=== PATIENT | male | born 1955 | race Hispanic/Latino ===

== ENCOUNTER → 2024-06-29 | Outpatient (CLI) | payer OTHER ==
[~2024-06-29] MED LIST: HYDR25SU7 RC
--- NOTE | 2024-06-30 07:29 | HMCSR ---
APPROVED REPORT EXAM: Two-dimensional and M-mode echocardiogram with Doppler and color Doppler. INDICATION ICD: Shortness of breath R06.02 2D Dimensions RVDd4.3 cmLVEF(%)64.2 (>50%)LVED Vol(simp.)129.0 mL IVSd1.1 (0.7-1.1cm)FS(%)35 %LVES Vol(simp.)54.0 mL LVDd4.9 (3.8-5.6cm)Ao Root(2D)3.5 (2.0-3.7cm)LVEF(%, simp.)58 % PWd1.3 (0.7-1.1cm)LVOT diam2.4 (1.8-2.4cm)LA ESV INDEX (BP)31.53 mL/m2 LVDs3.2 (2.5-4.0cm)IVC diam1.6 cm Aortic Valve AoV Vmax1.8 m/Stas Peak GR13.0 mmHgLVOT Vmax1.2 m/s AoV VTI0.4 mAo Mean GR7.8 mmHgLVOT VTI0.24 m ZACHARY (VMAX)3.1 cm2AVA (VTI) 3.1 cm2 Mitral Valve MV E Vmax67.5 cm/sDECEL Wufs440 ms MV A Vmax87.6 cm/sP 1/2 T71 ms E/A ratio0.8MVA (PHT)3.1 cm2 TDI E/E' Ujigdu84.0E/E' Lateral5.9 Pulmonary Valve PV Vmax1.5 m/sPV VTI0.25 mPV Mean GR4 mmHg PV Peak GR9.3 mmHgPI End Antonina. Marciano 1.5 cm/s Tricuspid Valve RAP (EST) 3 mmHg Left Ventricle Left ventricular cavity size is normal. There is normal LV segmental wall motion. There is borderline concentric left ventricular hypertrophy. LVEF is 55-60%. Grade 1 diastolic dysfunction Right Ventricle The right ventricle is mildly dilated. The right ventricular systolic function is normal. Atria The left atrium size is normal. The right atrium size is normal. Aortic Valve Aortic valve is trileaflet. Aortic valve leaflets are sclerotic but open well. Trace aortic regurgita tion. There is no aortic valvular stenosis. Mitral Valve Mitral valve leaflets are sclerotic but open well. Mitral regurgitation is trace. There is no mitral valve stenosis. Tricuspid Valve The tricuspid valve leaflets appear normal. There is trace tricuspid regurgitation. Pulmonic Valve The pulmonic valve leaflets are thin and pliable; valve motion is normal. There is trace pulmonic tati vular regurgitation. Great Vessels The aortic root is normal in size. The IVC is normal in size and collapses >50% with inspiration. Pericardium No pericardial effusion. Conclusion LVEF is 55-60%. Grade 1 diastolic dysfunction
== END | disposition home or self-care (01) ==
LOC: SHCH 09:08
PROVIDERS: ATTEND Internal Medicine Cardiovascular Disease
DX: I08.0 Rheumatic disorders of both mitral and aortic valves (principal); R06.02 Shortness of breath
CPT/HCPCS: 93306

== ENCOUNTER 2024-11-23 10:19 | Observation (INO) | payer OTHER ==
[~2024-11-23] VITALS: Ht 170.2 cm; Wt 75.4 kg
--- NOTE | 2024-11-23 10:47 | ERN ---
ED Note History of Present Illness Stated Complaint: OBSTRUCTION Chief Complaint: Abdominal Pain Time Seen by MD: 10:20 Dictation: History of present illness: 69-year-old male , with no significant past medical history presented to ED with complaints of abdominal pain since today morning. He has been experiencing on and off abdominal pain for past 3-4 months. His primary care doctor at [place] did a CT urogram which showed 1.6 cm obstructing ureteral stone on October last week 2024. Today morning he started experiencing abdominal pain greater on the flanks, 4/5 intensity. He denies fever, nausea, vomiting, chest pain, shortness of breath, dysuria or change in bowel habits. Allergies: Coded Allergies: No Known Allergies (Unverified Allergy, Unknown, 04/10/24) Home Meds Active Scripts Levofloxacin (Levofloxacin) 500 Mg Tablet, 500 MG PO DAILY for 7 Days, #7 TAB 0 Refills Prov:AGA RIZVI MD 11/24/24 Past Medical History Past Medical History: No Pertinent History Surgical History: None Review of System Dictation REVIEW OF SYSTEMS Positive for abdominal pain CONSTITUTIONAL: Denies fevers, chills, or night sweats. No unintentional weight loss reported. ENT: No hearing loss, otalgia, otorrhea, rhinitis, rhinorrhea, hoarseness, or sore throat. CARDIOVASCULAR: Denies any exertional angina, dyspnea on exertion, orthopnea, paroxysmal nocturnal dyspnea, palpitations claudication. PULMONARY: Denies any shortness of breath, cough, phlegm / sputum, hemoptysis, pleuritic chest pain. SLEEP: Denies morning headaches, daytime somnolence or napping. Denies difficulty falling asleep, staying asleep, waking from sleep. Denies knowledge of snoring. GASTROINTESTINAL: Denies any type of dysphagia to either liquids or solids. Denies nausea, vomiting, abdominal pain, diarrhea, constipation, blood in stools . NEUROLOGICAL: Denies headache, motor weakness, sensory deficit, vertigo / spinning sensation, gait abnormalities, or tremors. GENITOURINARY: Denies frequency, urgency, nocturia, hematuria or incontinence, low urinary stream, straining to void, urinary intermittency or hesitancy ENDOCRINOLOGY: Denies polyuria, polydipsia, polyphagia or heat / cold intolerance. HEMATOLOGY: Denies thrombophilia / previous clots, or coagulopathy / bleeding disorders. ONCOLOGIC: Denies personal history of malignancy. DERMATOLOGIC: Denies rashes or pruritus. PSYCHIATRIC: Denies any suicidal or homicidal ideation. Denies hallucinations. Initial Vital Sign VS Vital Signs Date Time Temp Pulse Resp B/P (MAP) Pulse Ox O2 Delivery O2 Flow Rate FiO2 11/23/24 10:35 98.2 76 20 145/92 99 Room Air 11/23/24 12:21 0 21 Physical Exam Dictation PHYSICAL EXAM GENERAL APPEARANCE: Well nourished . Awake and alert. Oriented to time, place and person. No acute cardiopulmonary distress. HEENT: Head normocephalic , atraumatic. Sclera anicteric . Pupils are round and reactive. Extraocular movements intact . No conjunctival injection. No nasal congestion. No throat congestion .Oral mucosa moist. NECK: Supple. No JVD. No thyromegaly. No submental, submandibular, pre- /postauricular, occipital or supraclavicular lymphadenopathy. No carotid bruits. CHEST: Normal chest expansion. No Telemetry. LUNGS: Clear to auscultation bilaterally . No rales, rhonchi or any wheezing. Equal tactile fremitus. Resonant to percussion . CARDIOVASCULAR: Regular rate and rhythm. S1 and S2 normal. No rubs, murmurs or gallops. ABDOMEN: Soft, nontender, and nondistended. There is no rebound tenderness, voluntary guarding, or rigidity. No hepatosplenomegaly. Bowel sounds normal in all four quadrants . NEUROLOGICAL: Cranial nerves II-XII grossly intact. Motor is 5/5 in bilateral upper and lower extremities . No sensory deficits. EXTREMITIES: No edema, No cyanosis , No clubbing. Good capillary refill. SKIN: No skin breakdown. No rashes or lesions . PSYCHIATRY: Normal affect .No auditory or visual hallucinations. Normal speech. No dysarthria. Results (Laboratory/Radiology) Laboratory/Radiology ED Course ED Course Medical Decision Making MDM Differential diagnosis : Renal colic, nephrolithiasis, pyelonephritis, urinary tract infection, cystitis Rationale: Tests considered and ordered secondary to shared decision making include: I will re-evaluate the patient after treatment and diagnostic exams have returned to determine whether they require further testing, can be safely discharged home, or need admission for further treatment and evaluation. Given the social determinants of health affecting care, including literacy, access to medical care, prescription drug management, and qdxr-rdr-dwgnavp drugs, I will ensure that treatment plans are tailored accordingly. There are no social concerns with this patient. Risk of complication and/or morbidity or mortality of patient management: None Need for hospitalization: Patient does not meet criteria for hospitalization. Need for emergency major/minor surgery: No Prescription drug management Prescriptions will include symptomatic care Medications-Per medication reconciliation Previous outside records reviewed: Old ER visits. Patient's prior external medical records from other ER visits were reviewed by me as indicated. Prior testing and results from previous visits were reviewed. Prior tests were taken into account with medical decision making and resource utilization, independent historian/historians were used to obtain complete medical history. I independently interpreted the test that were performed, results were reviewed by me and considered findings on radiology. Medical management and examination interpretation discussions was done by me with other qualified healthcare professionals as indicated for the patient's care. Revaluation: 69-year-old male with history of renal colic presented today with complaints of abdominal pain. He was sent here by his doctor at [place]. CT abdomen pelvis showed left ureteric stone of size 14 mm with marked left hydronephrosis and hydroureter. Patient be admitted for further evaluation and management. Discussed with the patient patient in agreement Disposition : Home DX & DISP Disposition: Observation Departure Impression: Primary Impression: Calculus of left ureter Additional Impressions: Hydronephrosis, left, Hydroureter, left, Acute kidney injury Condition: Stable Scripts Levofloxacin (Levofloxacin) 500 Mg Tablet 500 MG PO DAILY for 7 Days, #7 TAB 0 Refills Prov: AGA RIZVI MD 11/24/24 Referrals: NONE (PCP) TOSHIA COBOS MD Nov 23, 2024 10:47 KARYN ROJO DO Dec 01, 2024 08:14
[2024-11-23 10:55] LABS: BASOPHILS # (AUTO) 0.01 K/uL (0.00-0.20); BASOPHILS % (AUTO) 0.2 % (0.0-5.0); EOSINOPHILS # (AUTO) 0.09 K/uL (0.00-0.70); EOSINOPHILS % (AUTO) 1.4 % (0.0-8.0); HEMATOCRIT 34.7 % (42-54); IMMATURE GRANULOCYTE ABSOLUTE 0.01 K/uL (0-1); LYMPHOCYTES # (AUTO) 1.4 K/uL (1.0-4.8); LYMPHOCYTES % (AUTO) 22.4 % (21.0-51.0); MEAN CORPUSCULAR HEMOGLOBIN 19.1 pg (27.0-33.0); MEAN CORPUSCULAR HGB CONC 28.2 g/dL (32.0-36.0); MEAN CORPUSCULAR VOLUME 67.5 fL (79-99); MONOCYTES # (AUTO) 0.5 K/uL (0.1-1.0); MONOCYTES % (AUTO) 8.6 % (3.0-13.0); NEUTROPHILS # (AUTO) 4.2 K/uL (1.8-7.7); NEUTROPHILS % (AUTO) 67.2 % (40.0-77.0); PLATELET COUNT (AUTO) 227 K/uL (130-400); RED BLOOD CELL COUNT(AUTO) 5.14 MIL/uL (4.50-6.20); RED CELL DISTRIBUTION WIDTH 22.3 % (11.0-15.5); WHITE BLOOD COUNT (AUTO) 6.3 K/uL (4.8-10.8)
[2024-11-23 11:05] LABS: CREATININE 1.5 mg/dL (0.5-1.3); POTASSIUM 4.3 mmol/L (3.5-5.1)
[2024-11-23 11:32] LABS: APPEARANCE,URINE CLEAR (CLEAR); BILIRUBIN,URINE NEGATIVE (NEGATIVE); COLOR,URINE YELLOW (YELLOW); GLUCOSE, URINE (UA) NEGATIVE (NEGATIVE); KETONES,URINE NEGATIVE (NEGATIVE); LEUKOCYTE ESTERASE ,URINE 75 Leu/uL (NEGATIVE); NITRATE,URINE NEGATIVE (NEGATIVE); OCCULT BLOOD,URINE MODERATE (NEGATIVE); PH,URINE 5.5 (5.0-8.0); PROTEIN,URINE 20 mg/dL (NEGATIVE); UROBILINOGEN,URINE 0.2 mg/dL (0.2-1.0)
[2024-11-23 11:34] LABS: ADD UA MICROSCOPIC YES
[2024-11-23 11:40] LABS: MUCUS,URINE RARE LPF (None Seen); RBC,URINE >100 /HPF (0-1); SQUAMOUS EPITHELIAL CELL,UR RARE /HPF (0-2)
--- NOTE | 2024-11-23 12:06 | HMCIMG ---
CT ABDOMEN/PELVIS W/O CONTRAST HISTORY: Left flank pain COMPARISON: None TECHNIQUE: Multiple sequential axial images of the abdomen and pelvis were obtained from the dome of the diaphragm through symphysis pubis. Patient was not given contrast through intravenous route. Oral contrast was not given. FINDINGS: No pleural effusion is seen bilaterally. There is no evidence of parenchymal disease or pulmonary nodule of the visualized lower lungs. Degenerative changes of the thoracolumbar spine are present. The heart is not enlarged. Liver measures 15 cm. The liver, spleen, adrenal glands and pancreas are unremarkable. No hydronephrosis is seen on the right. There is marked left hydronephrosis and left hydroureter with 14 mm renal stone suspected in the left distal ureter region. There is extensive diverticulosis. Fecal material is seen in the colon. There are normal size retroperitoneal and mesenteric lymph nodes. No ascites is seen. Atherosclerotic changes are present. Pelvic sidewalls are symmetric bilaterally. Bladder is poorly distended. IMPRESSION: 1. There is marked left hydronephrosis and left hydroureter with 14 mm renal stone suspected in the left distal ureter region. There is extensive diverticulosis. CT was performed with one or more following dose reduction techniques: automated exposure control, adjustment of the mA and kv according to patient's size, or use of a iterative reconstruction technique.
[2024-11-23] MEDS: ZOSYN 3.375GM +NS 50ML IV ONE (12:15)
--- NOTE | 2024-11-23 12:47 | NUR ---
UROLOGY JIG HAND PAGED
--- NOTE | 2024-11-23 12:51 | NUR ---
UROLOGY CONSULT COMPLETED BY DR RAMIREZ
[2024-11-23] MEDS: 0.9%NACL 1000ML 1,000 ML IV SCH (13:00)
[2024-11-23] MEDS ORDERED: ondanSETRON 4MG INJ IVP PRN (13:00)
[2024-11-23] MEDS ORDERED: acetaMINOPHEN 500 MG TABLET PO PRN (13:00)
--- NOTE | 2024-11-23 13:07 | NUR ---
DOES NOT HAVE HOME MEDICATIONS ON HAND. STATES DOES NOT HAVE ANYONE THAT CAN BRING MEDICATIONS IN FOR RECONCILIATION
[2024-11-23 13:14] LABS: % IRON SATURATION 35.5 % (30-44)
[2024-11-23] MEDS: PANTOPrazole 40 MG/VIAL IVP SCH (13:14)
[2024-11-23] MEDS: tamSULOsin HCL 0.4 MG CAP.ER.24H PO SCH (13:14)
[2024-11-23 13:15] LABS: ALBUMIN 4.1 g/dL (3.5-5.0); BILIRUBIN,DIRECT 0.1 mg/dL (0.0-0.3); BILIRUBIN,TOTAL 0.4 mg/dL (0.2-1.0); TOTAL PROTEIN, SERUM 7.9 g/dL (6.0-8.3)
[2024-11-23 13:16] LABS: B-TYPE NATRIURETIC PEPTIDE 83 pg/mL (0-100)
--- NOTE | 2024-11-23 13:26 | HP ---
[facility] HISTORY [facility] PHYSICAL Date of Service: Nov 23, 2024 Time of Service: 13:18 HISTORY OF PRESENT ILLNESS: Date of service: 11/23/2024, patient was seen in ER room 18 69-year-old male with history of chronic anemia with iron deficiency, history of internal hemorrhoid bleeding status post ligation in 08/2024, history of renal stone who presented to the ER for further evaluation of left-sided flank pain ongoing for the past one week. Patient states that he was recently seen by his PCP in [place] and underwent abdominal CT and he was told that he had a large renal stone causing obstruction. CT was done about a week ago. Patient has not been able to follow up with the urologist as outpatient. Due to persistent nonresolving abdominal pain which he states is moderate in intensity, this prompted him to come to the hospital for further evaluation. Patient states that he has been taking medications from [facility] to assist with dissolving the stone which has not worked. Patient does report having prior history of renal stone about five years ago which required laser lithotripsy. Patient does have chronic anemia which he states is secondary to prior history of internal hemorrhoidal bleeding. He underwent recent suture ligation of the hemorrhoids in August and since then, bleeding has stopped. He has been told that he needs to be on iron supplementation. Patient denies any previous history of hypertension or cardiac comorbidities. He has been followed by heart clinic with Dr. Vora and was told that cardiac workup was benign about a year ago. Patient does report having dyspnea on exertion with exertional activity which has been ongoing for the past one year. He has been followed by PCP and is supposed to see pulmonology as outpatient. Denies history of smoking otherwise. On presentation to the hospital, patient was noted to be afebrile and hemodynamically stable. Labs on presentation showed WBC count of 6300, hemoglobin 9.8, MCV of 67.5 with microcytosis, platelet count of 192330. BMP remarkable for sodium 141, potassium 4.3, BUN of 24, creatinine 1.5, GFR of 50 with prior creatinine of 1.4 in 08/2024. Patient underwent CT abdomen pelvis without contrast which showed marked left hydronephrosis with left hydroureter with 14 mm left distal ureter stone. Urinalysis also suggestive of UTI. Patient will be admitted management of large renal stone causing hydronephrosis and hydroureter. Patient will be started on IV hydration, IV antibiotics, and consultation with Dr. Perry with Urology we will be requested. We will also obtain a chest x-ray. REVIEW OF SYSTEMS CONSTITUTIONAL: Denies fevers, chills, or night sweats. No unintentional weight loss reported. NEUROLOGICAL: Denies headache, amaurosis fugax, motor weakness, sensory deficit, vertigo/spinning sensation, gait abnormalities, or tremors. ENT: No hearing loss, otalgia, otorrhea, rhinitis, rhinorrhea, hoarseness, or sore throat. CARDIOVASCULAR: Denies any exertional angina, dyspnea on exertion, orthopnea, paroxysmal nocturnal dyspnea, palpitations, life-threatening arrhythmias, claudication. PULMONARY: Denies any shortness of breath, cough, phlegm/sputum, hemoptysis, pleuritic chest pain. SLEEP: Denies morning headaches, daytime somnolence or napping. Denies difficulty falling asleep, staying asleep, waking from sleep. Denies knowledge of snoring. GASTROINTESTINAL: Denies any type of dysphagia to either liquids or solids. Denies nausea, vomiting, pyrosis, early satiety, abdominal pain, diarrhea, constipation, or changes in stool consistency or caliber. Denies coffee-ground emesis, hematemesis, hematochezia, or melanotic stools. GENITOURINARY: Left-sided flank pain ENDOCRINOLOGIC: Denies polyuria, polydipsia, polyphagia or heat/cold intolerances. HEMATOLOGIC: Denies thrombophilia/previous clots, or coagulopathy/bleeding disorders. ONCOLOGIC: Denies personal history of malignancy. DERMATOLOGIC: Denies rashes or pruritus. PSYCHIATRIC: Denies any suicidal or homicidal ideation. Denies hallucinations. PAST MEDICAL HISTORY: Chronic iron deficiency anemia, history of internal hemorrhoid with history of chronic bleeding, history of nephrolithiasis, patient is being worked up for dyspnea as outpatient by his PCP and also has seen Cardiology as outpatient and is supposed to see pulmonology as outpatient PAST SURGICAL HISTORY: Cervical spine surgery, history of lower back surgery, history of right shoulder surgery, right knee surgery, abdominal hernia repair, hernia involving the groin which previously needed repair, history of penile surgery due to trauma, history of right foot surgery, patient denies any issues with anesthesia previously, denies any bleeding issues from surgery, recent history of [place]oid suture [place] [facility] PAST SOCIAL HISTORY: Denies active smoking or alcohol consumption FAMILY HISTORY: Denies pertinent family history Allergies: No known drug allergies Coded Allergies: No Known Allergies (Unverified Allergy, Unknown, 04/10/24) PHYSICAL EXAM GENERAL APPEARANCE: The patient is awake, alert, and oriented, in no acute cardiopulmonary distress. NEUROLOGICAL: Cranial nerves II-XII grossly intact. Motor is 5/5 in bilateral upper and lower extremities proximal to distal. No sensory deficits. HEENT: Face is symmetric. Pupils are equal and reactive. Extraocular movements are intact. NECK: Supple. No JVD. No thyromegaly. No submental, submandibular, pre- /postauricular, occipital or supraclavicular lymphadenopathy. CHEST: Normal chest expansion. No Telemetry. LUNGS: Absence of any rales, rhonchi or any wheezing. CARDIOVASCULAR: Regular. S1 and S2 normal. No appreciable rubs, murmurs or gallops. ABDOMEN: Soft, and nondistended. There is no rebound, voluntary guarding, or rigidity. Mild tenderness to palpation of the left leg : Deferred. No John. EXTREMITIES: Non-edematous and not cyanotic. No clubbing. Good capillary refill. SKIN: No skin breakdown. Vital Sign (Last 24 Hours) 11/23/24 11/23/24 10:35 12:21 Temp 98.2 Pulse 62 Resp 14 B/P (MAP) 127/73 Pulse Ox 96 O2 Delivery Room Air* O2 Flow Rate 0 FiO2 21 LABS: Laboratory: Test 11/23/24 10:50 11/23/24 10:31 Range/Units White Blood Count 6.3 4.8-10.8 K/uL Red Blood Count 5.14 4.50-6.20 MIL/uL Hemoglobin 9.8 L 14.0-18.0 g/dL Hematocrit 34.7 L 42-54 % Mean Corpuscular Volume 67.5 L 79-99 fL Mean Corpuscular Hemoglobin 19.1 L 27.0-33.0 pg Mean Corpuscular Hemoglobin Concent 28.2 L 32.0-36.0 g/dL Red Cell Distribution Width 22.3 H 11.0-15.5 % Platelet Count 227 130-400 K/uL Mean Platelet Volume 9.2 7.5-10.5 fL Immature Granulocyte % (Auto) 0.2 0-1 % Neutrophils (%) (Auto) 67.2 40.0-77.0 % Lymphocytes (%) (Auto) 22.4 21.0-51.0 % Monocytes (%) (Auto) 8.6 3.0-13.0 % Eosinophils (%) (Auto) 1.4 0.0-8.0 % Basophils (%) (Auto) 0.2 0.0-5.0 % Neutrophils # (Auto) 4.2 1.8-7.7 K/uL Lymphocytes # (Auto) 1.4 1.0-4.8 K/uL Monocytes # (Auto) 0.5 0.1-1.0 K/uL Eosinophils # (Auto) 0.09 0.00-0.70 K/uL Basophils # (Auto) 0.01 0.00-0.20 K/uL Absolute Immature Granulocyte (auto 0.01 0-1 K/uL Nucleated Red Blood Cells 0.0 0.0-0.19 % Red Blood Cell Morphology See comments Sodium Level 141 136-145 mmol/L Potassium Level 4.3 3.5-5.1 mmol/L Chloride Level 103 101-111 mmol/L Carbon Dioxide Level 28 21-32 mmol/L Blood Urea Nitrogen 24 H 7-18 mg/dL Creatinine 1.5 H 0.5-1.3 mg/dL Glomerular Filtration Rate Calc 50 >90 mL/min Random Glucose 100 70-105 mg/dL Lactic Acid Level 1.4 0.8-2.5 mmol/L Total Calcium 9.2 8.5-10.1 mg/dL Iron Level 158 65-175 mcg/dL Total Iron Binding Capacity 444 250-450 mcg/dL Percent Iron Saturation 35.5 30-44 % Total Bilirubin 0.4 0.2-1.0 mg/dL Direct Bilirubin 0.1 0.0-0.3 mg/dL Aspartate Amino Transf (AST/SGOT) 12 10-37 U/L Alanine Aminotransferase (ALT/SGPT) 14 12-78 U/L Alkaline Phosphatase 75 50-136 U/L Total Creatine Kinase 86 21-232 U/L B-Type Natriuretic Peptide 83 0-100 pg/mL Total Protein 7.9 6.0-8.3 g/dL Albumin 4.1 3.5-5.0 g/dL Urine Color YELLOW YELLOW Urine Appearance CLEAR CLEAR Urine pH 5.5 5.0-8.0 Urine Specific [place] 1.028 1.001-1.031 Urine Protein 20 H NEGATIVE mg/dL Urine Glucose (UA) NEGATIVE NEGATIVE mg/dL Urine Ketones NEGATIVE NEGATIVE mg/dL Urine Occult Blood MODERATE H NEGATIVE Urine Nitrate NEGATIVE NEGATIVE Urine Bilirubin NEGATIVE NEGATIVE mg/dL Urine Urobilinogen 0.2 0.2-1.0 mg/dL Urine Leukocyte Esterase 75 H NEGATIVE Anastasia/uL Urine RBC >100 H 0-1 /HPF Urine WBC 11-25 H 0-1 /HPF Urine Squamous Epithelial Cells RARE 0-2 /HPF Urine Bacteria None None Seen /HPF Urine Hyaline Casts 2-5 H 0-1 /LPF /LPF Current Medications Medications (Trade) Dose Ordered Sig/Raisa Route PRN Reason Start Time Stop Time Status Last Admin Dose Admin Acetaminophen (TYLenol 500MG TAB) 500 mg Q6H PRN PO MILD PAIN (1-3) 11/23/24 13:00 12/23/24 12:59 Morphine Sulfate (morPHINE 2MG SYG) 2 mg Q6H PRN IVP SEVERE PAIN (7-10) 11/23/24 13:00 11/30/24 12:59 Ondansetron HCl (zoFRAN 4MG INJ) 4 mg Q6H PRN IVP NAUSEA/VOMITING 11/23/24 13:00 12/23/24 12:59 Pantoprazole Sodium (PROTonix 40MG INJ) 40 mg Q24H IVP 11/23/24 13:00 12/23/24 12:59 11/23/24 13:14 40 MG Piperacillin Sod/ Tazobactam Sod (Zosyn 3.375gm+NS 50ml) 3.375 gm TID IV 11/23/24 20:00 12/03/24 19:59 UNV Sodium Chloride 1,000 ml @ 100 mls/hr Q10H IV 11/23/24 13:00 12/23/24 12:59 11/23/24 13:00 100 MLS/HR Tamsulosin HCl (FloMAX) 0.4 mg Q24H PO 11/23/24 13:00 12/23/24 12:59 11/23/24 13:14 0.4 MG DIAGNOSTICS / RADIOLOGY: SERVICE 1039 REASON: abdominal pain . h/o ureteral stone 1.6 cm ORDERING PHYSICIAN: TOSHIA COBOS MD PROCEDURE: ABD PEL WO - CT ABDOMEN/PELVIS W/O CONTRAST CT ABDOMEN/PELVIS W/O CONTRAST HISTORY: Left flank pain COMPARISON: None TECHNIQUE: Multiple sequential axial images of the abdomen and pelvis were obtained from the dome of the diaphragm through symphysis pubis. Patient was not given contrast through intravenous route. Oral contrast was not given. FINDINGS: No pleural effusion is seen bilaterally. There is no evidence of parenchymal disease or pulmonary nodule of the visualized lower lungs. Degenerative changes of the thoracolumbar spine are present. The heart is not enlarged. Liver measures 15 cm. The liver, spleen, adrenal glands and pancreas are unremarkable. No hydronephrosis is seen on the right. There is marked left hydronephrosis and left hydroureter with 14 mm renal stone suspected in the left distal ureter region. There is extensive diverticulosis. Fecal material is seen in the colon. There are normal size retroperitoneal and mesenteric lymph nodes. No ascites is seen. Atherosclerotic changes are present. Pelvic sidewalls are symmetric bilaterally. Bladder is poorly distended. IMPRESSION: 1. There is marked left hydronephrosis and left hydroureter with 14 mm renal stone suspected in the left distal ureter region. There is extensive diverticulosis. CT was performed with one or more following dose reduction techniques: automated exposure control, adjustment of the mA and kv according to patient's size, or use of a iterative reconstruction technique. DICTATED BY: NAOMI JAUREGUI MD DATE: 11/23/24 1201 ELECTRONICALLY SIGNED BY: NAOMI JAUREGUI MD DATE: 11/23/24 1206 ASSESSMENT: Symptomatic left nephrolithiasis with significant hydro uretero-nephrosis secondary to 14 mm obstructing renal stone, POA Chronic kidney disease, stage III, POA Urinary tract infection, POA History of iron deficiency anemia, POA History of internal hemorrhoid with prior history of bleeding status post suture ligation in 08/2024, POA History of chronic dyspnea being worked up as outpatient by PCP and specialist x1 year, POA Prior history of nephrolithiasis, POA PLAN: Patient will be admitted to medical-surgical floor under telemetry monitoring We will start IV hydration with NS at 100 mL/hour, patient was started on Flomax daily Broad-spectrum antibiotics with IV Zosyn Given the size of the stone, patient will need urologic evaluation for intervention, discussed patient's case with , appreciate recommendations Iron panel, if iron is significantly low, patient will benefit from IV iron infusion We will follow up urine culture Pain control with Tylenol and morphine Avoiding nephrotoxic medication We will obtain a two-view chest x-ray All labs will be repeated in the morning Date of service: 11/23/2024 Plan of care was discussed with patient at bedside, Jed García MD Advanced Care Planning: Which of the following were discussed: Hospice care: Yes __ No _X_ Therapeutic options: Yes _X_ No __ Advance directives: Yes _X_ No __ Other discussions: Discussed with who?: Patient Voluntary nature of this service was explained to the patient? Yes _x_ No __ Amount of time spent: 20 minutes JED GARCÍA MD Nov 23, 2024 13:26
--- NOTE | 2024-11-23 13:54 | EKG ---
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
[2024-11-23 13:57] LABS: ERYTHROCYTE SEDIMENTATION RATE 6 MM/HR (0-20)
--- NOTE | 2024-11-23 14:30 | HMCIMG ---
CHEST 2VWS HISTORY: Shortness of breath COMPARISON: None FINDINGS: Frontal and lateral projections of the chest were obtained. There is no acute pulmonary infiltrates or failure. The heart is borderline enlarged. No evidence of aortic calcification is seen. Degenerative changes are seen of the thoracolumbar spine. Prominent interstitial markings are seen. IMPRESSION: 1. No acute pulmonary infiltrates.
[2024-11-23] MEDS: ZOSYN 3.375GM +NS 50ML IV SCH (19:43)
[2024-11-23 20:00] VITALS: BP_SYST 133; PULSE 62; RESP 20; TEMP 97.5
--- NOTE | 2024-11-23 21:25 | NUR ---
report given to joana Lopes.
--- NOTE | 2024-11-23 21:30 | NUR ---
urology I spoke with dr. pelayo. He spoke with dr. perry on the phone and Dr. Perry has signed off. He wants the patient to follow up on his clinic. Doctor gita will keep the patient for his uti. I let him know that patient will be on room 422. He is aware.
[2024-11-23 21:40] VITALS: BP 146/87; PULSE 64; RESP 20; TEMP 98.1
--- NOTE | 2024-11-23 21:43 | CONS ---
UROLOGY CONSULTATION NOTE Date of Service: Nov 23, 2024 Reason for Consultation: 14 mm left distal ureteral calculus with severe left- sided hydroureteronephrosis Requesting Physician: Jed García MD HISTORY OF PRESENT ILLNESS: 69-year-old male with history of chronic anemia with iron deficiency, history of internal hemorrhoid bleeding status post ligation in 08/2024, history of renal stone who presented to the ER for further evaluation of left-sided flank pain ongoing for the past one week. Patient states that he was recently seen by his PCP in [place] and underwent abdominal CT and he was told that he had a large renal stone causing obstruction. CT was done about a week ago. Patient has not been able to follow up with the urologist as outpatient. Due to persistent nonresolving abdominal pain which he states is moderate in intensity, this prompted him to come to the hospital for further evaluation. Patient states that he has been taking medications from [place] to assist with dissolving the st one which has not worked. Patient does report having prior history of renal stone about five years ago which required laser lithotripsy. About a year ago he was diagnosed with this calculus in [place] but never followed through about therapy. A CT scan obtained in the emergency department showed severe high-grade obstruction caused by 14 mm calculus in the left distal ureter with left-sided hydroureteronephrosis. The most noteworthy seeing on the CT scan is the complete effacement of the left renal parenchyma and cortical thinning with a dilated left-sided renal pelvis. A urological consult was requested. REVIEW OF SYSTEMS CONSTITUTIONAL: Denies fever, chills, or fatigue. HEAD/FACE: No signs of trauma. EENT: Denies eye pain, blurred vision, double vision, or light sensitivity. RESPIRATORY: Denies shortness of breath, cough, wheezing CARDIOVASCULAR: Denies chest pain, palpitation, syncope GASTROINTESTINAL/ABDOMINAL: Denies abdominal pain, constipation, diarrhea, nausea or vomiting GENITOURINARY: Denies dysuria or hematuria. MUSCULOSKELETAL: Denies joint pain, tenderness, or trauma. INTEGUMENTARY: Denies rash or itchiness NEUROLOGICAL/PSYCH: Denies anxiety, depression, heat or cold intolerance. PAST MEDICAL HISTORY: Chronic iron deficiency anemia, history of internal hemorrhoid with history of chronic bleeding, history of nephrolithiasis, patient is being worked up for dyspnea as outpatient by his PCP and also has seen Cardiology as outpatient and is supposed to see pulmonology as outpatient PAST SURGICAL HISTORY: Cervical spine surgery, history of lower back surgery, history of right shoulder surgery, right knee surgery, abdominal hernia repair, hernia involving the groin which previously needed repair, history of penile surgery due to trauma, history of right foot surgery, patient denies any issues with anesthesia previously, denies any bleeding issues from surgery, recent history of internal hemorrhoid suture ligation in [facility] on 08/2024 PAST SOCIAL HISTORY: Denies smoking, ethanol and recreational drugs FAMILY HISTORY: Family history noncontributory to presenting complaint Coded Allergies: No Known Allergies (Unverified Allergy, Unknown, 04/10/24) PHYSICAL EXAM EYES: Anicteric. Pupils equal and reactive. HENT: No oral thrush seen, moist Oral mucosa NECK: Supple, no JVD or thyromegaly. LUNGS: Good air entry. No rales, no rhonchi. CARDIOVASCULAR: S1, S2 regular. No murmur heard. ABDOMEN: Soft, non tender, bowel sounds present, no organomegaly CENTRAL NERVOUS SYSTEM: Awake, alert, oriented x 3. No focal deficits. SKIN: No rashes, no swelling. LYMPHATICS: No peripheral lymphadenopathy MUSCULOSKELETAL: No joint swelling, erythema or tenderness. EXTREMITIES: No cyanosis or clubbing BACK: No deformity, no pressure ulcer. GENITOURINARY: Normal genitalia Vital Sign (Last 24 Hours) 11/23/24 11/23/24 18:03 20:00 Temp 97.5 Pulse 62 Resp 20 B/P (MAP) 133/ Pulse Ox 99 O2 Delivery Room Air O2 Flow Rate 0 FiO2 21 LABS: Laboratory: Test 11/23/24 10:50 11/23/24 10:31 Range/Units White Blood Count 6.3 4.8-10.8 K/uL Red Blood Count 5.14 4.50-6.20 MIL/uL Hemoglobin 9.8 L 14.0-18.0 g/dL Hematocrit 34.7 L 42-54 % Mean Corpuscular Volume 67.5 L 79-99 fL Mean Corpuscular Hemoglobin 19.1 L 27.0-33.0 pg Mean Corpuscular Hemoglobin Concent 28.2 L 32.0-36.0 g/dL Red Cell Distribution Width 22.3 H 11.0-15.5 % Platelet Count 227 130-400 K/uL Mean Platelet Volume 9.2 7.5-10.5 fL Immature Granulocyte % (Auto) 0.2 0-1 % Neutrophils (%) (Auto) 67.2 40.0-77.0 % Lymphocytes (%) (Auto) 22.4 21.0-51.0 % Monocytes (%) (Auto) 8.6 3.0-13.0 % Eosinophils (%) (Auto) 1.4 0.0-8.0 % Basophils (%) (Auto) 0.2 0.0-5.0 % Neutrophils # (Auto) 4.2 1.8-7.7 K/uL Lymphocytes # (Auto) 1.4 1.0-4.8 K/uL Monocytes # (Auto) 0.5 0.1-1.0 K/uL Eosinophils # (Auto) 0.09 0.00-0.70 K/uL Basophils # (Auto) 0.01 0.00-0.20 K/uL Absolute Immature Granulocyte (auto 0.01 0-1 K/uL Nucleated Red Blood Cells 0.0 0.0-0.19 % Red Blood Cell Morphology See comments Erythrocyte Sedimentation Rate 6 0-20 MM/HR Sodium Level 141 136-145 mmol/L Potassium Level 4.3 3.5-5.1 mmol/L Chloride Level 103 101-111 mmol/L Carbon Dioxide Level 28 21-32 mmol/L Blood Urea Nitrogen 24 H 7-18 mg/dL Creatinine 1.5 H 0.5-1.3 mg/dL Glomerular Filtration Rate Calc 50 >90 mL/min Random Glucose 100 70-105 mg/dL Lactic Acid Level 1.4 0.8-2.5 mmol/L Total Calcium 9.2 8.5-10.1 mg/dL Iron Level 158 65-175 mcg/dL Total Iron Binding Capacity 444 250-450 mcg/dL Percent Iron Saturation 35.5 30-44 % Ferritin 32 30-400 ng/mL Total Bilirubin 0.4 0.2-1.0 mg/dL Direct Bilirubin 0.1 0.0-0.3 mg/dL Aspartate Amino Transf (AST/SGOT) 12 10-37 U/L Alanine Aminotransferase (ALT/SGPT) 14 12-78 U/L Alkaline Phosphatase 75 50-136 U/L Lactate Dehydrogenase 177 81-234 U/L Total Creatine Kinase 86 21-232 U/L C-Reactive Protein, Quantitative 0.90 0.5-3.0 mg/L B-Type Natriuretic Peptide 83 0-100 pg/mL Total Protein 7.9 6.0-8.3 g/dL Albumin 4.1 3.5-5.0 g/dL Vitamin B12 Level 38246 H 193-986 pg/mL Folic Acid (LAB) 19.90 2-20 ng/mL Procalcitonin < 0.05 L 0.05-0.5 ng/mL Thyroid Stimulating Hormone (TSH) 5.34 H 0.36-3.74 uIU/mL Urine Color YELLOW YELLOW Urine Appearance CLEAR CLEAR Urine pH 5.5 5.0-8.0 Urine Specific [place] 1.028 1.001-1.031 Urine Protein 20 H NEGATIVE mg/dL Urine Glucose (UA) NEGATIVE NEGATIVE mg/dL Urine Ketones NEGATIVE NEGATIVE mg/dL Urine Occult Blood MODERATE H NEGATIVE Urine Nitrate NEGATIVE NEGATIVE Urine Bilirubin NEGATIVE NEGATIVE mg/dL Urine Urobilinogen 0.2 0.2-1.0 mg/dL Urine Leukocyte Esterase 75 H NEGATIVE Anastasia/uL Urine RBC >100 H 0-1 /HPF Urine WBC 11-25 H 0-1 /HPF Urine Squamous Epithelial Cells RARE 0-2 /HPF Urine Bacteria None None Seen /HPF Urine Hyaline Casts 2-5 H 0-1 /LPF /LPF DIAGNOSTICS / RADIOLOGY: CT stone protocol in the emergency department obtained today shows a high-grade obstruction caused by 14 mm calculus in the left distal ureter, left ureteral dilation, left renal pelvis dilation, effacement of the left renal cortex and severe parenchymal thinning from prolonged obstruction. ASSESSMENT: 69-year-old man diagnosed over a year ago with a large stone in the left distal ureter, never followed up presents with intermittent left flank pain with imaging evidence of high-grade obstruction and almost complete left renal cor tical thinning with the effacement PLAN: 1. Patient isn't overly symptomatic at this point. We talked to him about treatment options. All of these could be arranged in an ambulatory setting. 2. He will see us in the office and was set him up for shockwave lithotripsy 3. Patient can be discharged home by the primary team and given a follow-up appointment with us in about two weeks. 60 minutes spent to complete a consult, more than half of the time spent at bedside in counseling and coordination of care and addressing all questions and concerns post by patient, some time was spent discussing with members of his care team. The rest of the time was spent reviewing medical records past and present as well as imaging and laboratory data from this admission OSMANI REYNOLDS MD Nov 23, 2024 21:43
[2024-11-23] MEDS: morPHINE 2 MG SYG IVP PRN (23:54)
[2024-11-24 03:18] VITALS: BP 145/87; PULSE 68; RESP 18; TEMP 98
[2024-11-24 04:47] LABS: BASOPHILS # (AUTO) 0.01 K/uL (0.00-0.20); BASOPHILS % (AUTO) 0.2 % (0.0-5.0); EOSINOPHILS # (AUTO) 0.11 K/uL (0.00-0.70); EOSINOPHILS % (AUTO) 1.7 % (0.0-8.0); HEMATOCRIT 31.6 % (42-54); IMMATURE GRANULOCYTE ABSOLUTE 0.02 K/uL (0-1); MEAN CORPUSCULAR HEMOGLOBIN 19.3 pg (27.0-33.0); MEAN CORPUSCULAR HGB CONC 27.8 g/dL (32.0-36.0); MEAN CORPUSCULAR VOLUME 69.5 fL (79-99); MONOCYTES # (AUTO) 0.7 K/uL (0.1-1.0); MONOCYTES % (AUTO) 10.6 % (3.0-13.0); NEUTROPHILS # (AUTO) 3.6 K/uL (1.8-7.7); NEUTROPHILS % (AUTO) 56.2 % (40.0-77.0); PLATELET COUNT (AUTO) 197 K/uL (130-400); RED BLOOD CELL COUNT(AUTO) 4.55 MIL/uL (4.50-6.20); RED CELL DISTRIBUTION WIDTH 22.3 % (11.0-15.5); WHITE BLOOD COUNT (AUTO) 6.5 K/uL (4.8-10.8)
[2024-11-24 05:05] LABS: CREATININE 1.5 mg/dL (0.5-1.3); MAGNESIUM 2.1 mg/dL (1.80-2.40); POTASSIUM 4.8 mmol/L (3.5-5.1)
--- NOTE | 2024-11-24 07:45 | DS ---
Discharge Summary Hospital Course Summary: This 69-year-old male with history of chronic anemia with iron deficiency, history of internal hemorrhoid bleeding status post ligation in 08/2024, history of renal stone who presented to the ER on 11/23/24 for further evaluation of left-sided flank pain ongoing for the past one week. Patient stated that he was recently seen by his PCP in [place] and underwent abdominal CT and he was told that he had a large renal stone causing obstruction. CT was done about a week ago. Patient has not been able to follow up with the urologist as outpatient. Due to persistent nonresolving abdominal pain which he states is moderate in intensity, this prompted him to come to the hospital for further evaluation. Patient does report having prior history of renal stone about five years ago which required laser lithotripsy. Patient denied any previous history of hypertension or cardiac comorbidities. He has been followed by heart clinic with Dr. Vora and was told that cardiac workup was benign about a year ago.Patient reported having dyspnea on exertion with exertional activity which has been ongoing for the past one year. He has been followed by PCP and is supposed to see pulmonology as outpatient. Denied history of smoking otherwise. On presentation to the hospital, patient was noted to be afebrile and hemodynamically stable. Labs on presentation showed WBC count of 6300, hemoglobin 9.8, MCV of 67.5 with microcytosis, platelet count of 023683. BMP remarkable for sodium 141, potassium 4.3, BUN of 24, creatinine 1.5, GFR of 50 with prior creatinine of 1.4 in 08/2024. Patient underwent CT abdomen pelvis without contrast which showed marked left hydronephrosis with left hydroureter with 14 mm left distal ureter stone. Urinalysis also suggestive of UTI. Patient was admitted for management of large renal stone causing hydronephrosis and hydroureter. Patient was started on IV hydration, IV antibiotics. Urology consult was obtained and recommended outpatient follow-up with his office in 1 week since he is not symptomatic. The plan is for shockwave lithotripsy as an outpatient. Patient is clinically stable for discharge and we will discharge him with p.o. levofloxacin 500 mg daily for 7 days. Patient to follow up with PCP within 3-5 days and with Urology Dr. Perry in 1 week upon discharge. Radio Antenna Installer(s): Urology : Dr. Perry Procedure(s): [facility] [address] [place] [address] [id number] IMAGING REPORT Signed PATIENT: DOMINIQUE YA MR#: [id number] : 1955 SEX: M AGE: 69 [id number] STATUS: ADM IN REPORT#: [id number] SERVICE 1240 REASON: hx of chronic Shortness of breath, r/o any significant infiltrates ORDERING PHYSICIAN: YA RAMIREZ MD PROCEDURE: CXR2VW - CHEST 2VWS CHEST 2VWS HISTORY: Shortness of breath COMPARISON: None FINDINGS: Frontal and lateral projections of the chest were obtained. There is no acute pulmonary infiltrates or failure. The heart is borderline enlarged. No evidence of aortic calcification is seen. Degenerative changes are seen of the thoracolumbar spine. Prominent interstitial markings are seen. IMPRESSION: 1. No acute pulmonary infiltrates. DICTATED BY: NAOMI JAUREGUI MD DATE: 11/23/241426 ELECTRONICALLY SIGNED BY: NAOMI JAUREGUI MD DATE: 11/23/[address] [facility] [address] [place] [id number] IMAGING REPORT Signed PATIENT: DOMINIQUE YA MR#: [id number] : 1955 SEX: M AGE: 69 LOCATION: ED ORDER [id number] STATUS: REG ER REPORT#: [id number] SERVICE 1039 REASON: abdominal pain . h/o ureteral stone 1.6 cm ORDERING PHYSICIAN: TOSHIA COBOS MD PROCEDURE: ABD PEL WO - CT ABDOMEN/PELVIS W/O CONTRAST CT ABDOMEN/PELVIS W/O CONTRAST HISTORY: Left flank pain COMPARISON: None TECHNIQUE: Multiple sequential axial images of the abdomen and pelvis were obtained from the dome of the diaphragm through symphysis pubis. Patient was not given contrast through intravenous route. Oral contrast was not given. FINDINGS: No pleural effusion is seen bilaterally. There is no evidence of parenchymal disease or pulmonary nodule of the visualized lower lungs. Degenerative changes of the thoracolumbar spine are present. The heart is not enlarged. Liver measures 15 cm. The liver, spleen, adrenal glands and pancreas are unremarkable. No hydronephrosis is seen on the right. There is marked left hydronephrosis and left hydroureter with 14 mm renal stone suspected in the left distal ureter region. There is extensive diverticulosis. Fecal material is seen in the colon. There are normal size retroperitoneal and mesenteric lymph nodes. No ascites is seen. Atherosclerotic changes are present. Pelvic sidewalls are symmetric bilaterally. Bladder is poorly distended. IMPRESSION: 1. There is marked left hydronephrosis and left hydroureter with 14 mm renal stone suspected in the left distal ureter region. There is extensive diverticulosis. CT was performed with one or more following dose reduction techniques: automated exposure control, adjustment of the mA and kv according to patient's size, or use of a iterative reconstruction technique. DICTATED BY: NAOMI JAUREGUI MD DATE: 11/23/241200 ELECTRONICALLY SIGNED BY: NAOMI JAUREGUI MD DATE: 11/23/241205 RUN DATE: 11/24/24 [facility] PAGE 1 RUN TIME: 727 [address] [place] [address] Department of Laboratories [facility] # [id number] Acid Crane Operator: Jimi Allen DO Specimen Report PATIENT: DOMINIQUE YA ACCT: [id number] LOC: [facility] U: [id number] AGE/SX: 69/M ROOM: 422 RE11/23/[address]: YA RAMIREZ MD : 1955 BED: 1 DIS: STATUS: ADM IN TLOC: SPEC: [id number] SOUMYA: 11/23/24 STATUS: RES REQ: [id number] RECD: 11/23/[address] [facility] [address]: TOSHIA COBOS MD SOURCE: URINE CC ENTR: 11/23/[address]: JODY [facility]: ORDERED: URINE CULTURE Procedure Result Gene Date-Time URINE CULTURE Preliminary 11/24/24 REPORT URINE NO GROWTH 18-[address] [facility] [address] [id number] ELECTRO CARDIOGRAM Draft PATIENT: DOMINIQUE YA MR#: [id number] : 1955 SEX: M AGE: 69 LOCATION: [facility] ROOM/BED: ED-18 ORDER [id number] REPORT#: [id number] REASON: ORDERING PHYSICIAN: YA RAMIREZ MD PROCEDURE: EKG - 12 LEAD EKG TRACING- TECHNICAL [facility] Test Date: 2024-11-23 Test Time: 13:32:16 Pat Name: DOMINIQUE YA Department: EDHIP Room: ED 18 Gender: Male Outpatient Physical Therapist: [id number] : 1955 Requested By: YA RAMIREZ Order Number: [id number] Reading MD: Measurements Intervals [place] Rate: 59 P: 25 CT: 202 QRS: 4 QRSD: 107 T: 30 QT: 457 QTc: 454 Interpretive Statements Sinus rhythm No previous ECG available for comparison Please click the below link to view image of tracing. Assessment/Plan: ASSESSMENT: Symptomatic left nephrolithiasis with significant hydro ureteral nephrosis secondary to 14 mm obstructing renal stone, POA Chronic kidney disease, stage III, POA Urinary tract infection, POA History of iron deficiency anemia, POA History of internal hemorrhoid with prior history of bleeding status post suture ligation in 08/2024, POA History of chronic dyspnea being worked up as outpatient by PCP and specialist x1 year, POA Prior history of nephrolithiasis, POA Discharge Instructions: ADMISSION DATE : 11/23/24 DISCHARGE DATE : 11/24/24 DISPOSITION : Home CONDITION : Stable Radio Antenna Installer(s) : Urology : Dr. Perry FOLLOW UP APPOINTMENTS : Patient to follow-up with the PCP within 3-[address] Perry upon discharge. PROCEDURES : None IMAGING (s) : Report attached to summary : Chest x-ray, CT abdomen and pelvis and EKG MICROBIOLOGY : Report attached to summary : Urine culture ACTIVITY : ab che HOME MEDICATIONS : Continue NEW MEDICATIONS : Levofloxacin 500 mg p.o. daily for 7 days TEACHING : We reinforced the importance of medication compliance and with f ollow up appointments. Advised patient to follow-up with the PCP within 3-[address] Perry upon discharge. Emergency instructions : The patient was instructed to present to the nearest Emergency Department or call 911 should their symptoms return or worsen. Home Medications: Active Scripts Levofloxacin (Levofloxacin) 500 Mg Tablet, 500 MG PO DAILY for 7 Days, #7 TAB 0 Refills Prov:AGA RIZVI MD 11/24/24 New Medications: Levofloxacin (Levofloxacin) 500 Mg Tablet 500 MG PO DAILY for 7 Days, #7 TAB 0 Refills Time spent arranging discharge: 1-30 minutes ATTESTATION BY PHYSICIAN I have seen and examined the patient. I reviewed the documentation, medical decision making, and treatment plan as noted by the resident provider above. I agree with the findings and plan of care. Thee Olson MD, KRUPALI P MD Nov 24, 2024 07:45
[2024-11-24 08:00] VITALS: BP 153/87; PULSE 61; RESP 18; TEMP 97.7; O2SAT 94
[2024-11-24] MEDS ORDERED: LEVO-70 PO (08:02)
== END 2024-11-24 09:50 | disposition home or self-care (01) ==
LOC: EDH 10:19 → EDHIP 12:44 → INTOOBSV 12:44 → 4DH 21:56
PROVIDERS: ADMIT Internal Medicine; ATTEND Internal Medicine
DX: N13.2 Hydronephrosis with renal and ureteral calculous obstruction (principal); N18.30 Chronic kidney disease, stage 3 unspecified; N39.0 Urinary tract infection, site not specified; N17.9 Acute kidney failure, unspecified; N13.4 Hydroureter; K64.8 Other hemorrhoids; D50.9 Iron deficiency anemia, unspecified; Z79.899 Other long term (current) drug therapy
CPT/HCPCS: 96365; 96366 ×3; 96375; 99285; 84443; 83540; 83550; 82550; 80076; 83615; 80048 ×2; 83880; 82728; 85025 ×2; 85651; 87086; 83605; 82607; 82746; 86140; 81001; 36415 ×2; 71046; 74176; 93005; 84145; 83735; G0378 ×21; J2270; J2543 ×3; J2470

== ENCOUNTER 2024-12-06 09:25 | Emergency (ER) | payer OTHER ==
[~2024-12-06] VITALS: Ht 170.2 cm; Wt 77.1 kg
[~2024-12-06 09:25] MED LIST changes: -HYDR25SU7 RC; +LEVO-70 PO
[2024-12-06 10:08] LABS: BASOPHILS # (AUTO) 0.01 K/uL (0.00-0.20); BASOPHILS % (AUTO) 0.2 % (0.0-5.0); EOSINOPHILS # (AUTO) 0.03 K/uL (0.00-0.70); EOSINOPHILS % (AUTO) 0.7 % (0.0-8.0); HEMATOCRIT 38.3 % (42-54); IMMATURE GRANULOCYTE ABSOLUTE 0.01 K/uL (0-1); LYMPHOCYTES # (AUTO) 1.4 K/uL (1.0-4.8); LYMPHOCYTES % (AUTO) 30.8 % (21.0-51.0); MEAN CORPUSCULAR HEMOGLOBIN 20.3 pg (27.0-33.0); MEAN CORPUSCULAR HGB CONC 28.2 g/dL (32.0-36.0); MONOCYTES # (AUTO) 0.8 K/uL (0.1-1.0); MONOCYTES % (AUTO) 16.3 % (3.0-13.0); NEUTROPHILS # (AUTO) 2.4 K/uL (1.8-7.7); NEUTROPHILS % (AUTO) 51.8 % (40.0-77.0); PLATELET COUNT (AUTO) 238 K/uL (130-400); RED BLOOD CELL COUNT(AUTO) 5.32 MIL/uL (4.50-6.20); RED CELL DISTRIBUTION WIDTH 26.2 % (11.0-15.5); WHITE BLOOD COUNT (AUTO) 4.6 K/uL (4.8-10.8)
[2024-12-06 10:11] LABS: APPEARANCE,URINE CLEAR (CLEAR); BILIRUBIN,URINE NEGATIVE (NEGATIVE); COLOR,URINE LIGHT-YELLOW (YELLOW); GLUCOSE, URINE (UA) NEGATIVE (NEGATIVE); KETONES,URINE NEGATIVE (NEGATIVE); LEUKOCYTE ESTERASE ,URINE NEGATIVE Leu/uL (NEGATIVE); NITRATE,URINE NEGATIVE (NEGATIVE); OCCULT BLOOD,URINE SMALL (NEGATIVE); PH,URINE 5.5 (5.0-8.0); PROTEIN,URINE NEGATIVE (NEGATIVE); UROBILINOGEN,URINE 0.2 mg/dL (0.2-1.0)
--- NOTE | 2024-12-06 10:11 | EKG ---
[facility] Test Date: 2024-12-06 Test Time: 10:00:24 Pat Name: DOMINIQUE YA Department: [facility] Room: Gender: M Special Projects Coordinator: 0000 : 1955 Requested By: SANAZ SOTELO Order Number: [id number] Reading MD: Martha Moncada Measurements Intervals [place] Rate: 67 P: 19 CA: 160 QRS: -12 QRSD: 107 T: -3 QT: 413 QTc: 434 Interpretive Statements Sinus rhythm Probable left atrial enlargement Compared to ECG 11/23/2024 13:32:16 No significant changes Electronically Signed On 12-08-2024 09:32:58 CDT by Martha Moncada Please click the below link to view image of tracing.
[2024-12-06 10:12] LABS: ADD UA MICROSCOPIC YES
[2024-12-06 10:19] LABS: MUCUS,URINE RARE LPF (None Seen)
[2024-12-06 10:21] LABS: CREATININE 1.5 mg/dL (0.5-1.3); POTASSIUM 4.9 mmol/L (3.5-5.1)
[2024-12-06 10:24] LABS: ALBUMIN 3.9 g/dL (3.5-5.0); BILIRUBIN,DIRECT 0.1 mg/dL (0.0-0.3); BILIRUBIN,TOTAL 0.3 mg/dL (0.2-1.0)
--- NOTE | 2024-12-06 10:37 | ERN ---
ED Note History of Present Illness Stated Complaint: FLANK PAIN Chief Complaint: Flank Pain Time Seen by MD: 09:32 Dictation: 69-year-old male presents to the ED for evaluation of left flank pain for over two weeks. Patient states he was seen here for the same complaint and was referred to urologist for kidney stones and UTI but was not seen by urologist because he never got an appointment. Patient mentioned he was told he had a 14 mm stone on his left side and an 11 mm stone on his right side. Patient denies any dysuria, hematuria or any other associated symptoms at this time. Allergies: Coded Allergies: No Known Allergies (Unverified Allergy, Unknown, 04/10/24) Home Meds Active Scripts Levofloxacin (Levofloxacin) 500 Mg Tablet, 500 MG PO DAILY for 7 Days, #7 TAB 0 Refills Prov:AGA RIZVI MD 11/24/24 Past Medical History Past Medical History: No Pertinent History Surgical History: None Review of System Dictation Constitutional: Negative for fever,chills, and weight loss Eyes: Negative for injury, pain,redness, and discharge ENT: Negative for injury,pain or swelling Cardiovascular: Negative for chest pain, palpitations, and edema Respiratory: Negative for shortness of breath, cough, and wheezing, Abdomen/GI: Positive for left flank pain Negative for abdominal pain, nausea, vomiting, diarrhea, and constipation Back: Negative for injury and pain : Negative for injury, bleeding and discharge MS/Extremity: Negative for injury and deformity Skin: Negative for rash, and discoloration Neuro: Negative for headache, weakness, numbness, tingling, and seizure Psych: Negative for suicide ideation, homicidal ideation, and hallucinations Initial Vital Sign VS Vital Signs Date Time Temp Pulse Resp B/P (MAP) Pulse Ox O2 Delivery O2 Flow Rate FiO2 12/06/24 09:27 98.4 75 20 126/85 99 Room Air 12/06/24 10:05 0 21 Physical Exam Dictation General: awake, alert, NAD Head/Face: Normocephalic, atraumatic Eyes: PERRL, EOMI, vision at baseline ENT: oral cavity clear, TMs clear, no signs of infection Neck: Trachea midline, supple, no nuchal rigidity Cardiovascular: RRR, normal S1/S2, No MRGs, no JVD Respiratory: CTAB, no respiratory distress, No rales or wheezes Abdomen: Left flank tenderness, non-distended, normal bowel sounds, no guarding or rebound. Skin: Warm, dry, normal turgor, no rash MS/Extremity: Pulses equal, no cyanosis, neurovascular intact, FROM Neuro: COAx4, GCS 15, strength 5/5, CN 2-12 intact, normal cerebellar exam, normal gait, Psych: Normal behavior, mood, and affect normal Results (Laboratory/Radiology) Laboratory/Radiology Laboratory Tests Test 12/06/24 09:51 12/06/24 09:54 White Blood Count 4.6 K/uL (4.8-10.8) L Red Blood Count 5.32 MIL/uL (4.50-6.20) Hemoglobin 10.8 g/dL (14.0-18.0) L Hematocrit 38.3 % (42-54) L Mean Corpuscular Volume 72.0 fL (79-99) L Mean Corpuscular Hemoglobin 20.3 pg (27.0-33.0) L Mean Corpuscular Hemoglobin Concent 28.2 g/dL (32.0-36.0) L Red Cell Distribution Width 26.2 % (11.0-15.5) H Platelet Count 238 K/uL (130-400) Mean Platelet Volume 9.6 fL (7.5-10.5) Immature Granulocyte % (Auto) 0.2 % (0-1) Neutrophils (%) (Auto) 51.8 % (40.0-77.0) Lymphocytes (%) (Auto) 30.8 % (21.0-51.0) Monocytes (%) (Auto) 16.3 % (3.0-13.0) H Eosinophils (%) (Auto) 0.7 % (0.0-8.0) Basophils (%) (Auto) 0.2 % (0.0-5.0) Neutrophils # (Auto) 2.4 K/uL (1.8-7.7) Lymphocytes # (Auto) 1.4 K/uL (1.0-4.8) Monocytes # (Auto) 0.8 K/uL (0.1-1.0) Eosinophils # (Auto) 0.03 K/uL (0.00-0.70) Basophils # (Auto) 0.01 K/uL (0.00-0.20) Absolute Immature Granulocyte (auto 0.01 K/uL (0-1) Nucleated Red Blood Cells 0.0 % (0.0-0.19) White Cell Morphology Comment See comments Red Blood Cell Morphology See comments Sodium Level 137 mmol/L (136-145) Potassium Level 4.9 mmol/L (3.5-5.1) Chloride Level 101 mmol/L (101-111) Carbon Dioxide Level 30 mmol/L (21-32) Blood Urea Nitrogen 25 mg/dL (7-18) H Creatinine 1.5 mg/dL (0.5-1.3) H Glomerular Filtration Rate Calc 50 mL/min (>90) Random Glucose 107 mg/dL (70-105) H Total Calcium 9.2 mg/dL (8.5-10.1) Total Bilirubin 0.3 mg/dL (0.2-1.0) Direct Bilirubin 0.1 mg/dL (0.0-0.3) Aspartate Amino Transf (AST/SGOT) 13 U/L (10-37) Alanine Aminotransferase (ALT/SGPT) 14 U/L (12-78) Alkaline Phosphatase 79 U/L (50-136) Total Creatine Kinase 79 U/L (21-232) Troponin I High Sensitivity 8 ng/L (4-75) Total Protein 8.0 g/dL (6.0-8.3) Albumin 3.9 g/dL (3.5-5.0) Lipase 31 U/L (16-77) Urine Color LIGHT-YELLOW (YELLOW) Urine Appearance CLEAR (CLEAR) Urine pH 5.5 (5.0-8.0) Urine Specific [place] 1.019 (1.001-1.031) Urine Protein NEGATIVE mg/dL (NEGATIVE) Urine Glucose (UA) NEGATIVE mg/dL (NEGATIVE) Urine Ketones NEGATIVE mg/dL (NEGATIVE) Urine Occult Blood SMALL (NEGATIVE) H Urine Nitrate NEGATIVE (NEGATIVE) Urine Bilirubin NEGATIVE mg/dL (NEGATIVE) Urine Urobilinogen 0.2 mg/dL (0.2-1.0) Urine Leukocyte Esterase NEGATIVE Anastasia/uL Urine RBC 11-25 /HPF (0-1) H Urine WBC 2-5 /HPF (0-1) H Urine Bacteria None /HPF (None Seen) Labs Reviewed?: Yes EKG Comment: EKG 12/06/2024 time 10:00 a.m. ventricular rate 67, NM 160, QRS D 107, QT 413. Sinus rhythm, probable left atrial enlargement. No STEMI CT Scan Comment: REASON: left flank pain ORDERING PHYSICIAN: SANAZ SOTELO MD PROCEDURE: ABD PELVWO - CT ABD/PEL WO CON RENAL/APPY CT ABDOMEN WITHOUT CONTRAST. CT PELVIS WITHOUT CONTRAST. INDICATION: Right flank pain TECHNIQUE: Routine transaxial imaging using 5 mm slice thickness through the abdomen and pelvis without the administration of IV contrast. Thin slice reconstructions are also provided. Coronal and sagittal reformatted images acquired for interpretation. CT was performed with one or more of the following dose reduction techniques: Automated exposure control, adjustment of the mA and/or kV according to patient size, or use of iterative reconstruction technique. COMPARISON: 11/23/2024 FINDINGS: ON NONCONTRAST IMAGING: ABDOMEN: Heart size is normal. Coronary arterial wall calcific plaque noted. Visible lung bases are clear. Moderate to severe left hydroureteronephrosis secondary to large 1.3 cm long by 0.6 cm wide obstructing distal left ureteral stone. 0.3 cm nonobstructing calculus at the lower pole of the right kidney. Moderate left renal cortical thinning. 5.7 cm simple cyst at the upper pole of the left kidney. The liver is normal in size and smooth in contour without biliary duct dilation. 1.2 cm simple cyst at the lateral margin of the right hepatic lobe. The spleen is normal in size and attenuation. The gallbladder appears normal. The pancreas appears normal without pancreatic duct dilation. The adrenal glands appear normal. No significant abdominal, retrocrural or retroperitoneal adenopathy noted. No evidence for intra-abdominal free air or organized fluid collection. No aortic aneurysmal dilation identified. PELVIS: No abnormal calcifications within the urinary bladder or distal ureters. No evidence for free air or organized pelvic fluid collection. No significant pelvic adenopathy detected. A few diverticula along the distal colon and moderate stool burden. Terminal ileum appears unremarkable. The appendix appears normal. Mild thoracolumbar spondylosis. IMPRESSION: 1. Chronic-appearing 1.3 cm long by 0.6 cm wide distal left ureteral stone contributing to moderate to severe left hydroureteronephrosis and moderate left renal cortical thinning. 2. Subcentimeter nonobstructing right renal stone. 3. Distal colonic diverticulosis and moderate stool burden. DICTATED BY: HEAVEN WESTON MD DATE: 12/06/24 1040 ED Course ED Course Orders Procedure Category Date Status Time 12 Lead Ekg Tracing- EKG 12/06/24 Complete Technical 09:43 Basic Metabolic Panel LAB 12/06/24 Complete 09:43 Cbc With Differential LAB 12/06/24 Complete 09:43 Hepatic Function Panel LAB 12/06/24 Complete 09:43 Creatine Kinase, Total LAB 12/06/24 Complete 09:43 Lipase LAB 12/06/24 Complete 09:43 Troponin I High LAB 12/06/24 Complete Sensitivity 09:43 Urinalysis Profile LAB 12/06/24 Complete 09:43 Ct Abd/Pel Wo Con CT 12/06/24 Resulted Renal/Appy 09:43 Ondansetron 4mg Inj PHA 12/06/24 Complete (Zofran 4mg Inj) 13:00 Morphine 4mg Syg PHA 12/06/24 Complete (Morphine 4mg Syg) 13:00 0.9%Nacl 1000ml (Ns PHA 12/06/24 Complete 1000ml) 13:00 Current Medications Medications (Trade) Dose Ordered Sig/Raisa Route PRN Reason Start Time Stop Time Status Last Admin Dose Admin Morphine Sulfate (morPHINE 4MG SYG) 4 mg ONCE ONCE IVP 12/06/24 13:00 12/06/24 13:01 DC Ondansetron HCl (zoFRAN 4MG INJ) 4 mg ONCE ONCE IVP 12/06/24 13:00 12/06/24 13:01 DC Sodium Chloride 1,000 ml @ 0 mls/hr ONCE ONCE IV 12/06/24 13:00 12/06/24 13:01 DC Vital Signs Date Time Temp Pulse Resp B/P (MAP) Pulse Ox O2 Delivery O2 Flow Rate FiO2 12/06/24 12:27 64 18 125/73 98 Room Air* 0 21 12/06/24 11:08 97.2 63 18 133/75 98 Room Air* 0 21 12/06/24 10:05 97.9 73 18 158/94 98 Room Air* 0 21 12/06/24 09:27 98.4 75 20 126/85 99 Room Air Medical Decision Making MDM MDM: Differential diagnosis: kidney stones, flank pain Patient left AMA Rationale: Tests considered and ordered secondary to shared decision making include: labs, ECG and radiology Risk of complication and/or morbidity or mortality of patient management: None Medications-Per medication reconciliation Need for hospitalization: Patient does meet criteria for hospitalization. Need for emergency major/minor surgery: No There are no social concerns with this patient. I independently interpreted the test that were performed, results were reviewed by me and considered findings on radiology if ordered. DX & DISP Disposition: AMA Departure Impression: Primary Impression: Flank pain Condition: Against Medical Advice Referrals: SELF,REFERRAL (PCP) SANAZ SOTELO MD Dec 06, 2024 10:37
--- NOTE | 2024-12-06 10:46 | HMCIMG ---
CT ABDOMEN WITHOUT CONTRAST. CT PELVIS WITHOUT CONTRAST. INDICATION: Right flank pain TECHNIQUE: Routine transaxial imaging using 5 mm slice thickness through the abdomen and pelvis without the administration of IV contrast. Thin slice reconstructions are also provided. Coronal and sagittal reformatted images acquired for interpretation. CT was performed with one or more of the following dose reduction techniques: Automated exposure control, adjustment of the mA and/or kV according to patient size, or use of iterative reconstruction technique. COMPARISON: 11/23/2024 FINDINGS: ON NONCONTRAST IMAGING: ABDOMEN: Heart size is normal. Coronary arterial wall calcific plaque noted. Visible lung bases are clear. Moderate to severe left hydroureteronephrosis secondary to large 1.3 cm long by 0.6 cm wide obstructing distal left ureteral stone. 0.3 cm nonobstructing calculus at the lower pole of the right kidney. Moderate left renal cortical thinning. 5.7 cm simple cyst at the upper pole of the left kidney. The liver is normal in size and smooth in contour without biliary duct dilation. 1.2 cm simple cyst at the lateral margin of the right hepatic lobe. The spleen is normal in size and attenuation. The gallbladder appears normal. The pancreas appears normal without pancreatic duct dilation. The adrenal glands appear normal. No significant abdominal, retrocrural or retroperitoneal adenopathy noted. No evidence for intra-abdominal free air or organized fluid collection. No aortic aneurysmal dilation identified. PELVIS: No abnormal calcifications within the urinary bladder or distal ureters. No evidence for free air or organized pelvic fluid collection. No significant pelvic adenopathy detected. A few diverticula along the distal colon and moderate stool burden. Terminal ileum appears unremarkable. The appendix appears normal. Mild thoracolumbar spondylosis. IMPRESSION: 1. Chronic-appearing 1.3 cm long by 0.6 cm wide distal left ureteral stone contributing to moderate to severe left hydroureteronephrosis and moderate left renal cortical thinning. 2. Subcentimeter nonobstructing right renal stone. 3. Distal colonic diverticulosis and moderate stool burden.
[2024-12-06 11:08] VITALS: TEMP 97.2
[2024-12-06 12:27] VITALS: BP 125/73; PULSE 64; RESP 18; O2SAT 98
[2024-12-06] MEDS: morPHINE 4 MG SYG IVP ONE (12:58)
[2024-12-06] MEDS: 0.9%NACL 1000ML 1,000 ML IV ONE (12:58)
[2024-12-06] MEDS: ondanSETRON 4MG INJ IVP ONE (12:59)
--- NOTE | 2024-12-06 13:06 | NUR ---
PT REFUSING ALL IV MEDICINAL INTERVENTIONS, STATES WILL GO HOME BECAUSE HE NEEDS TO FEED HIS DOG. MD ASHLEIGH POLANCO
== END 2024-12-06 14:02 | disposition left against medical advice (07) ==
LOC: EDH 09:25
DX: N13.2 Hydronephrosis with renal and ureteral calculous obstruction (principal); R10.9 Unspecified abdominal pain
CPT/HCPCS: 36415; 74176; 80048; 80076; 81001; 82550; 83690; 84484; 85025; 93005; 99284; 99285; J2270; J2405; J7030